=== PATIENT | female | born 1980 | race Caucasian/White ===

== ENCOUNTER 2020-01-19 13:01 | Emergency (ER) | payer MEDICARE, MEDICAID, SELFPAY ==
[2020-01-19 13:10] VITALS: BP 129/71; PULSE 69; RESP 21; TEMP 36.9; O2SAT 98; BMI 23.3
--- NOTE | 2020-01-19 13:45 | XR_ITS ---
PROCEDURE: XR CHEST 2V CLINICAL HISTORY: cough COMPARISON: CR CXR CHEST(2 VIEWS-NOT PORTABLE) from 01/05/2014 CR CXR CHEST(2 VIEWS-NOT PORTABLE) from 03/30/2014 CR XR CHEST 2V from 06/09/2019 FINDINGS: Normal heart size. There is a right-sided aortic knob as a normal variant The lungs are clear without infiltrates, suspicious nodules, or pleural effusions. Calcified granuloma is present in left apex. There is a mild thoracic curvature convex left in the upper thoracic spine. IMPRESSION: No acute findings. Dictated by: Shabbir Bacon MD 01/19/2020 14:12 Shabbir Bacon MD in [place] 01/19/2020 14:12
--- NOTE | 2020-01-19 13:58 | HMH.EDUTC ---
[facility] [place] Clinical Impression: Bronchitis Disposition: Home, Self-Care Condition on Discharge: Good Instructions: Acute Bronchitis, DI for Acute Bronchitis Additional Instructions: Drink plenty of fluids. Take tylenol or ibuprofen for pain or fever. Take the medications as directed. Follow up with your regular doctor. GO TO THE ER FOR ANY WORSENING SYMPTOMS Prescriptions: methylPREDNISolone [Medrol] 4 mg PO DIRECTED 6 Days #21 tab.[email or web address] Transmission Status: Received by [facility] ([place], [place]) Benzonatate [Tessalon Perle 100mg Cap] 100 mg PO TIDP PRN #30 cap PRN Reason: Cough Transmission Status: Received by [facility] Azithromycin [Z-Ab 250mg Tab*] 250 mg PO UD DOSE PK #6 tab Transmission Status: Received by [facility] Referrals: PCP,No [Primary Care Provider] - Time of Disposition: 14:03 Medical Decision Making - Medical Records Medical records reviewed: No: I reviewed the patient's medical records. - Aaron Inquiry Pt receiving controlled substance: No Vital Signs: 01/19/20 13:10 01/19/20 14:05 Temperature 98.4 F 98.4 F Temperature Source Oral Pulse Rate 69 Pulse Rate [Right Brachial] 69 Respiratory Rate 21 21 Blood Pressure 129/71 Blood Pressure [Left Arm] 129/71 Blood Pressure Mean [Left Arm] 90 Blood Pressure Source [Left Arm] Automatic Cuff Blood Pressure Position [Left Arm] Sitting 02 Sat by Pulse Oximetry 98 Oxygen Delivery Method Room Air - Lab Data Lab results reviewed: Yes: I reviewed the patient's lab results. [facility] [place] HPI - General Stated complaint: cough Time Seen by Provider: 01/19/20 13:10 Mode of Arrival: Ambulatory Source of Information: Patient Limitations: No Limitations Description of Symptoms (Recalled from Triage Doc. by RN): PATIENT C/O NON-PRODUCTIVE COUGH X 2 DAYS HEENT Symptoms (Recalled from RN notes): No Resp Symptoms (Recalled from RN notes): Yes Skin Symptoms (Recalled from RN notes): No MS Symptoms (Recalled from RN notes): No Functional Status (Recalled from RN notes): WNL - History of Present Illness Provider Complaint: She c/o sore throat, sinus congestion, and feeling bad for the past 3 days. - Related Data Home Medications Medication Instructions Recorded Confirmed Aspirin 81 mg PO DAILY 05/12/18 01/19/20 Sildenafil Citrate [Sildenafil] 20 mg PO TID 05/12/18 01/19/20 Ambrisentan [Letairis] 10 mg PO DAILY 01/19/20 01/19/20 dilTIAZem HCL [Dilt-Xr] 120 mg PO DAILY 01/19/20 01/19/20 Previous Rx's Medication Instructions Recorded Azithromycin [Z-Ab 250mg Tab*] 250 mg PO UD DOSE PK #6 tab 01/19/20 Benzonatate [Tessalon Perle 100mg 100 mg PO TIDP PRN #30 cap 01/19/20 Cap] methylPREDNISolone [Medrol] 4 mg PO DIRECTED 6 Days #21 01/19/20 tab.ds.pk Allergies Allergy/AdvReac Type Severity Reaction Status Date / Time ciprofloxacin [From Cipro] Allergy Unknown I-RASH Verified 07/17/18 10:19 codeine Allergy Unknown I-HIVES Verified 07/17/18 10:19 hydrocodone Allergy Unknown NA-NAUSEA Verified 07/17/18 10:19 morphine Allergy Unknown I-HIVES Verified 07/17/18 10:19 naproxen Allergy Unknown Verified 07/17/18 10:19 penicillin G Allergy Unknown I-HIVES Verified 07/17/18 10:19 - Worker's Comp Is this a Worker's Comp case?: No [facility] History - Hepatitis A Screen Drug use history?: No High risk sexual behaviors?: No History of sexually transmitted infection?: No Currently employed?: No Childcare worker?: No Do you have indoor plumbing?: Yes Do you have electricity?: Yes Attestation statement:: This patient has been screened for Hepatitis A risk factors. 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
[2020-01-19 14:05] VITALS: BP 129/71; PULSE 69; RESP 21; TEMP 36.9; O2SAT 98
== END 2020-01-19 14:15 | disposition home or self-care (01) ==
PROVIDERS: Emergency Provider Nurse Practitioner Family
DX: J20.9 Acute bronchitis, unspecified (principal); Z20.828 Contact with and (suspected) exposure to other viral communicable diseases; Z88.0 Allergy status to penicillin; Z88.5 Allergy status to narcotic agent
CPT/HCPCS: 71046; 99202; U0003

== ENCOUNTER 2023-10-24 16:21 | Outpatient (CLI) | payer MEDICARE, MEDICAID, SELFPAY ==
--- NOTE | 2023-10-24 16:35 | XR_ITS ---
PROCEDURE INFORMATION: Exam: XR Left Knee Exam date and time: 10/24/2023 4:26 PM Age: 43 years old Clinical indication: Pain; Knee; Left; Additional info: XR L knee pain TECHNIQUE: Imaging protocol: Radiologic exam of the left knee. Views: 3 views. COMPARISON: No relevant prior studies available. FINDINGS: Bones/joints: No acute fracture or dislocation. Joint spaces preserved. No effusion. Soft tissues: Unremarkable. IMPRESSION: No acute osseous abnormality.
== END 2023-10-24 23:59 | disposition home or self-care (01) ==
LOC: RAD 16:25
PROVIDERS: PCP Student in an Organized Health Care Education/Training Program; Visit Provider Student in an Organized Health Care Education/Training Program
DX: M25.562 Pain in left knee (principal)
CPT/HCPCS: 73562

== ENCOUNTER 2024-12-23 10:03 | Emergency (ER) | payer MEDICARE, MEDICAID, SELFPAY ==
--- OUTSIDE RECORDS SUMMARY | 2024-10-29 15:20 | XMS_ITS | Encounter Summary ---
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 10/29/2024 4:39 PM EDT [facility] HCT 52.7(H) 34.0 - 45.0 % LAB HEMATOLOGY METHOD 10/29/2024 4:39 PM EDT [facility] Platelet Count 298 155 - 369 10*3/uL LAB HEMATOLOGY METHOD 10/29/2024 4:39 PM EDT [facility] MCV 96 79 - 98 fL LAB HEMATOLOGY METHOD 10/29/2024 4:39 PM EDT [facility] MCH 32.6(H) 26.0 - 32.0 pg LAB HEMATOLOGY METHOD 10/29/2024 4:39 PM EDT [facility] MCHC 34.0 30.7 - 35.5 g/dL LAB HEMATOLOGY METHOD 10/29/2024 4:39 PM EDT [facility] RDW 13.3 11.5 - 14.5 % LAB HEMATOLOGY METHOD 10/29/2024 4:39 PM EDT [facility] MPV 9.3 8.8 - 12.5 fL LAB HEMATOLOGY METHOD 10/29/2024 4:39 PM EDT [facility] nRBC 0.0 <=0.0 per 100 WBCs LAB HEMATOLOGY METHOD 10/29/2024 4:39 PM EDT [facility] Differential Type Automated LAB HEMATOLOGY METHOD 10/29/2024 4:39 PM EDT [facility] Neutrophils % 58 % LAB HEMATOLOGY METHOD 10/29/2024 4:39 PM EDT [facility] Lymphocytes % 29 % LAB HEMATOLOGY METHOD 10/29/2024 4:39 PM EDT [facility] Monocytes % 7 % LAB HEMATOLOGY METHOD 10/29/2024 4:39 PM EDT [facility] Eosinophils % 5 % LAB HEMATOLOGY METHOD 10/29/2024 4:39 PM EDT [facility] Basophils % 1 % LAB HEMATOLOGY METHOD 10/29/2024 4:39 PM EDT [facility] Immature Granulocytes % 0 % LAB HEMATOLOGY METHOD 10/29/2024 4:39 PM EDT [facility] Neutrophils Absolute 3.48 1.60 - 6.10 10*3/uL LAB HEMATOLOGY METHOD 10/29/2024 4:39 PM EDT [facility] Lymphocytes Absolute 1.69 1.20 - 3.90 10*3/uL LAB HEMATOLOGY METHOD 10/29/2024 4:39 PM EDT [facility] Monocytes Absolute 0.40 0.30 - 0.90 10*3/uL LAB HEMATOLOGY METHOD 10/29/2024 4:39 PM EDT [facility] Eosinophils Absolute 0.27 0.00 - 0.50 10*3/uL LAB HEMATOLOGY METHOD 10/29/2024 4:39 PM EDT [facility] Basophils Absolute 0.07 0.00 - 0.10 10*3/uL LAB HEMATOLOGY METHOD 10/29/2024 4:39 PM EDT [facility] Immature Granulocytes Absolute 0.02 0.00 - 0.06 10*3/uL LAB HEMATOLOGY METHOD 10/29/2024 4:39 PM EDT [facility] Blood Venous blood specimen / Unknown Venipuncture / Unknown 10/29/2024 4:09 PM EDT 10/29/2024 4:24 PM EDT Narrative [facility] - 10/29/2024 4:39 PM EDT Therapeutic decision making should be based on absolute values, rather than percentages. us Radha Esparza MD LAB BLOOD ORDERABLES Final Result [facility] [address] [place] [address] * ECG Adult (Now - Performed in your clinic) (10/29/2024 3:10 PM EDT) EKG DIAGNOSIS CLASS Abnormal MUSE ECG Ventricular Rate 95 BPM MUSE ECG Atrial Rate 95 BPM MUSE ECG AZ Interval 160 ms MUSE ECG QRSD Interval 90 ms MUSE ECG QT Interval 340 ms MUSE ECG QTC Interval 427 ms MUSE ECG P [place] 48 degrees MUSE ECG R [place] 86 degrees MUSE ECG T Wave [place] 42 degrees MUSE ECG Diagnosis Sinus rhythm with premature atrial complexes MUSE ECG Diagnosis Biatrial enlargement MUSE ECG Diagnosis Right ventricular hypertrophy with repolarization abnormality MUSE ECG Diagnosis Nonspecific T wave abnormality MUSE ECG Diagnosis Abnormal ECG MUSE ECG Diagnosis MUSE ECG Diagnosis Confirmed by Yoshi Ferreira ([id number]) on 10/30/2024 9:03:56 AM MUSE ECG 10/29/2024 3:10 PM EDT 10/30/2024 9:03 AM EDT us Radha Esparza MD ECG ORDERABLES Final Resu lt MUSE ECG documented in this encounter Visit Diagnoses Diagnosis 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 Pulmonary hypertension (CMS/HCC) 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) documented in this encounter Additional Health Concerns Assessment Noted Time PHQ-9 Depression Total Score: 0 10/30/19 25 3:08 PM EDT A fall risk assessment has been complete d for the patient 10/29/2024 3:08 PM EDT A Body Mass Index follow-up plan has been documented for the patient 10/29/2024 4:25 PM EDT documented as of this encounter Care Teams Cupola Operator Relationship Specialty Start Date End Date Olena Medrano MD [address] [place] [address] PCP - General Family Medicine 02/06/24 Birgit Myrick APRN [address] [place] [id number] Nurse Practitioner Internal Medicine 11/20/21 Ratna Webber, RN [facility] Registered Nurse Cardiology 11/20/21 Conchis Ornelas, RN [facility] Registered Nurse 01/08/22 Rito Medina MD [address] [place] [phone] Consulting Physician Cardiology 06/27/22 Conchis Hobbs 12/12/23 Chelsi Avalos, [employer] [employer] Licensed Practical Nurse 06/12/24 12/09/24 documented as of this encounter
[2024-12-23 10:14] VITALS: BP 132/61; PULSE 83; RESP 16; TEMP 36.6; O2SAT 86; BMI 22.1
--- NOTE | 2024-12-23 10:19 | ED_ITS ---
<Statement entered by Brad Roberts MD - 12/23/24 19:09> I was consulted by the LUKE, and we discussed the complexity of the problems being addressed. I approve the treatment and management plan for this patient's care in the emergency department, thus performing a substantive portion of the medical decision making. Brad Roberts MD Discharge Plan Disposition Patient Disposition: Home, Self-Care Condition: Good Prescriptions Prescriptions: New ondansetron 4 mg tablet,disintegrating 4 mg PO Q6H PRN (Reason: nausea and vomiting) Qty: 30 0RF No Action ondansetron 4 mg tablet,disintegrating 4 mg PO Q8H PRN (Reason: nausea and vomiting) Qty: 10 0RF Qvar RediHaler 80 mcg/actuation HFA aerosol breath activated 1 inh inhalation BID furosemide 40 mg tablet 40 mg PO DAILY Patient Comments: TAKE 1 TABLET BY MOUTH ONCE DAILY IN THE MORNING spironolactone 25 mg tablet 25 mg PO DAILY Patient Comments: TAKE 2 TABLETS BY MOUTH ONCE DAILY furosemide 20 mg tablet 20 mg PO HS Patient Comments: TAKE 1 TABLET BY MOUTH ONCE DAILY IN THE EVENING aspirin 81 MG tablet,chewable 81 mg PO DAILY sildenafil (pulm.hypertension) 20 MG tablet 20 mg PO TID diltiazem HCl 120 MG capsule,ext.rel 24h degradable 120 mg PO DAILY ambrisentan 10 MG tablet 10 mg PO DAILY Referrals Follow up/Referrals: Olena Medrano MD [Primary Care Provider, Family Practice] - See instructions Claudio Keane II, MD [Staff Physician, Gastroenterology] - See instructions Activity Restrictions/Add. Instructions Additional Instructions/Restrictions: Please return to the emergency department with any worsening signs or symptoms. Please continue to progress your diet as tolerated, take antinausea medicine as needed for symptomatic relief. Follow-up with GI doctor in the upcoming days/weeks. Clinical Impressions Clinical Impression: Abdominal pain, Nausea & vomiting Instructions Patient Instructions: DI for Abdominal Pain-Adult, DI for Nausea -- Adult Print Language Print Language: Kazakh Discharge ED Provider: Brad Roberts General Adult HPI General Chief complaint: Nausea/Vomiting/Diarrhea Stated complaint: abd pain/vomiting Time Seen by Provider: 12/23/24 10:09 Mode of Arrival: Ambulatory Source of Information: Patient Limitations: No Limitations Description of Symptoms (Recalled from ER Triage Doc. by RN): Patient states that she has had vomiting after she eats for 2 weeks. Was seen at [facility] a week ago and given Zofran, which she states helped, but she is out. Was told to follow up with PCP, but she has not seen them. Patient denies any diarrhea. History of Present Illness HPI narrative: 44-year-old female presents the emergency department for poor p.o. intake abdominal pain nausea and vomiting and diarrhea that is persistent for the last 2 weeks, however patient does state that she at times able to keep things down , but the next day they come right back up , patient denies any fever chills chest pain shortness of breath, endorses waxing waning abdominal pain, that is midepigastric in nature, nausea vomiting this morning after she attempted to have intake with coffee and water , states the diarrhea is improved, denies any hematuria melena hematochezia or hematemesis, denies any urinary type symptomatology, patient is a non-smoker, denies any alcohol or drug use, initial triage vitals are grossly unremarkable. Patient was seen in the urgent care treatment facility 2 weeks ago given Zofran which did improve her symptomatology, advised to come to the emergency department if the symptoms do not improve . This prompted her emergency department visit today. Patient is somewhat of a poor historian, but has other past medical history consistent with Eisenmenger syndrome due to congenital VSD, pulmonary hypertension, hypertension, BENITO. Please note that above description of symptoms, in this electronic medical record under categorization of recalled from ER triage doctor by RN are reflective of an initial nursing assessment, however, is not reflective of my full history and physical exam that was personally taken and clarified. Consequentially, this preceding description of symptoms, which may include the patient's categorized chief complaint in the EMR, do not reflect my personal clinical impression, and the ultimate description of history of present illness and patient stated complaints should be deferred to this section of the note. Unless stated otherwise or congruent with this section of the note, additional signs, symptoms, or incongruence should be interpreted as inaccurate with my clinical impression. Onset (ago): week(s) Related Data Home Medications ?Medication ?Instructions ?Recorded ?Confirmed aspirin 81 mg chewable tablet 81 mg PO DAILY heart 12/16/24 sildenafil (pulm.hypertension) 20 20 mg PO TID heart 0 05/12/18 12/16/24 mg tablet ambrisentan 10 mg tablet 10 mg PO DAILY Heart disease 01/19/20 12/16/24 diltiazem HCl 120 mg 120 mg PO DAILY Heart diseas e 01/19/20 12/16/24 capsule,extended release 24 hr, controlled beclomethasone dipropionate 80 1 inh inhalation BID 12/16/24 mcg/actuation HFA breath activated aerosol (Qvar RediHaler) furosemide 20 mg tablet 20 mg PO HS 10/24/23 5 furosemide 40 mg tablet 40 mg PO DAILY 10/24/2307/07 spironolactone 25 mg tablet 25 mg PO DAILY 10/24/23 Previous Rx's ?Medication ?Instructions ?Recorded ondansetron 4 mg disintegrating 4 mg PO Q8H PRN nausea and 12/16/24 tablet vomiting #10 tabs ondansetron 4 mg disintegrating 4 mg PO Q6H PRN nausea and 12/23/24 tablet vomiting #30 tabs Allergies Allergy/AdvReac Type Severity Reaction Status Date / Time ciprofloxacin (From Cipro) Allergy Unknown I-RASH Verified 12/16/24 12:34 codeine Allergy Unknown I-HIVES Verified 12/16/24 12:34 hydrocodone Allergy Unknown NA-NAUSEA Verified 12/16/24 12:34 morphine Allergy Unknown I-HIVES Verified 12/16/24 12:34 naproxen Allergy Unknown Hives Verified 12/23/24 10:19 penicillin G Allergy Unknown I-HIVES Verified 12/16/24 12:34 PFSH PFS Disclaimer: The information contained in this section may have been updated after the patient was seen, as this information can be updated by other users. Medical History (Updated 12/23/24 @ 12:18 by FATOU Stevenson) Nausea Asthma Pneumonia Boil, axilla Otitis media Congenital heart defect Ganglion cyst Acute anxiety Hyperventilation SVT (supraventricular tachycardia) Pseudoseizure Surgical History History of surgical removal of ganglion cyst History of tubal ligation Family History Other No significant family history Social History Smoking Status: Never smoker alcohol intake: never current occupational status: other Travel in the last 8 weeks?: None housing: house Have you lived/traveled outside [place] in past 30 days?: No Contact w/someone who lives/traveled outside US past 30 days?: No Exposure to someone with infectious disease in past 14 days?: No Do you have a fever (greater than 100.4 F or 38 C)?: No Have you tested positive for COVID-19?: No Exposed to someone with COVID-19 in past 14 days?: No Do you have a sore throat?: No Do you have a cough?: No Do you have any weakness?: No Do you have any diarrhea?: No Are you experiencing any unusual bleeding?: No Do you have any muscle aches/pain?: No Do you have any abdominal pain?: No Are you experiencing loss of taste or smell?: No Other Medical History Have you received the Flu Vaccine for this season: Yes Have you received the Pneumonia Vaccine: No ROS Obtained: Yes All systems reviewed & no additional complaints except as documented Physical Exam General General appearance: alert and in no apparent distress Head Head exam: atraumatic and normocephalic Eye Eye exam: Present PERRL and EOMI ENT ENT exam: Present mucous membranes moist Neck Neck exam: Present normal inspection Chest Chest inspection: Present normal inspection and symmetric chest wall rise Respiratory Respiratory exam: Present normal lung sounds bilaterally; Absent respiratory distress Cardiovascular Cardiovascular exam: Present regular rate and normal rhythm Abdominal Exam Abdominal exam: Present soft; Absent tenderness, guarding, rebound or rigidity Extremities Exam Extremities exam: Present normal inspection Neurological Exam Neurological exam: Present alert and oriented X3 Psychiatric Psychiatric exam: Present normal affect Skin Skin exam: Present warm and dry Medical Decision Making Medical Records Medical records reviewed: Yes I reviewed the patient's medical records. Screening: Per USPSTF and CDC recommendations, given the prevalence of disease in our region, it is our hospital?s policy to screen for HIV and viral Hepatitis for all patients aged 18 and over and those with ongoing risk factors. Aaron Inquiry Pt receiving controlled substance: No Aaron was queried for this patient: No Vital Signs: 12/23/24 10:14 12/23/24 11:09 Temperature 97.8 F Temperature Source Oral Pulse Rate 77 Pulse Rate [Left Brachial] 83 Respiratory Rate 16 Blood Pressure 109/56 L Blood Pressure [Left Arm] 132/61 Blood Pressure Mean [Left Arm] 84 Blood Pressure Source [Left Arm] Automatic Cuff Blood Pressure Position Sitting Blood Pressure Position [Left Arm] Sitting 02 Sat by Pulse Oximetry 86 L 95 Oxygen Delivery Method Room Air Room Air Lab Data Lab results reviewed: Yes I reviewed the patient's lab results. Lab Results 12/23/24 10:10: Urine Color Yellow, Urine Appearance Clear, Urine pH 7.0, Ur Specific [place] 1.010, Urine Protein Negative, Urine Glucose (UA) Negative, Urine Ketones Negative, Urine Blood Negative, Urine Nitrate Negative, Urine Bilirubin Negative, Urine Urobilinogen 0.2, Ur Leukocyte Esterase Negative, Urine RBC None, Urine WBC None, Ur Squamous Epith Cells 10-20, Ur Renal Epithelial Cell 3-5, Urine Bacteria Trace, Urine Opiates Screen Negative, Urine Methadone Screen Negative, Ur Barbituates Screen Negative, Ur Phencyclidine Scrn Negative, Ur Amphetamines Screen Negative, U Benzodiazepines Scrn Negative, Urine Cocaine Screen Negative, U Marijuana (THC) Screen Negative 12/23/24 10:30: WBC 7.0, RBC 5.31, Hgb 17.4 H, Hct 51.8 H, MCV 97.6, MCH 32.8 H, MCHC 33.6, RDW 13.3, Plt Count 281, MPV 9.4, Neut % (Auto) 61.0, Lymph % (Auto) 29.2, Wolfe % (Auto) 5.8, Eos % (Auto) 2.6, Baso % (Auto) 1.1, Neut # (Auto) 4.3, Lymph # (Auto) 2.1, Wolfe # (Auto) 0.4, Eos # (Auto) 0.2, Baso # (Auto) 0.1, Sodium 137, Potassium 4.0, Chloride 105, Carbon Dioxide 25, Anion Gap 11.0, BUN 8, Creatinine 0.70, Estimated Creat Clear 79, Estimated GFR 92, Est GFR ( Amer) 111, Glucose 99, Lactate 1.5, Calcium 10.0, Magnesium 1.7, Total Bilirubin 1.0, AST 24, ALT 17, Alkaline Phosphatase 50, Total Protein 6.9, Albumin 4.4, Globulin 2.5, Albumin/Globulin Ratio 1.8, Lipase 42, Plasma/Serum Alcohol < 10 12/23/24 10:30 12/23/24 10:30 Orders (Tests/Meds): ED MEDICATIONS Discontinued Medications Generic Name Dose Route Start Last Admin Trade Name Chiara PRN Reason Stop Dose Admin Sodium Chloride 1,000 mls @ 999 mls/hr 12/23/24 10:26 12/23/24 10:44 Sod Chlor 0.9% 1000ml Bag IV 12/23/24 11:26 999 mls/hr .Q1H1M ONE Administration Iopamidol 75 ml 12/23/24 10:59 12/23/24 11:00 Iopamidol-370 (76%);100ml Bottle IV 12/23/24 11:00 75 ml ONCE ONE Administration Ondansetron HCl 4 mg 12/23/24 10:27 12/23/24 10:45 Ondansetron 4mg/2ml Vial IV 12/23/24 10:28 4 mg ONCE ONE Administration Sodium Chloride 10 ml 12/23/24 10:59 12/23/24 11:00 Sodium Chloride 0.9% 10ml Syr (Rad Only) IV 12/23/24 11:00 10 ml ONCE ONE Administration ORDERS Category Date Time Status CT abdomen pelvis w con Stat Cat Scan 12/23/24 10:27 Completed Complete Blood Count Auto Diff Stat Lab 12/23/24 10:30 Completed Comprehensive Metabolic Panel Stat Lab 12/23/24 10:30 Completed Drug Screen,Urine Stat Lab 12/23/24 10:10 Completed Ethanol [Ethyl Alcohol] Stat Lab 12/23/24 10:30 Completed Lactic Acid Stat Lab 12/23/24 10:30 Completed Lipase Stat Lab 12/23/24 10:30 Completed Magnesium Stat Lab 12/23/24 10:30 Completed Urinalysis and Microscopic Stat Lab 12/23/24 10:10 Completed Medical Decision Narrative: 44-year-old female presents emergency department with 2 weeks of poor p.o. intake abdominal pain nausea vomiting, that is wax and wane, differential diagnose include but not limited to, colitis, ileitis, gastroenteritis, gastroparesis, diverticulitis, electrolyte disturbance, acute UTI, acute nephritis, nephrolithiasis, ureterolithiasis, gastritis, GERD, cannabinoid hyperemesis syndrome. I discussed this patient's case with attending physician Will obtain basic laboratory studies, lipase level, lactic level, UDS, urinalysis, CT ab and pelvis with contrast, will give 1 L IV NS, will give 4 mg IV Zofran for nausea, will obtain magnesium level, ethyl alcohol level. CBC unremarkable CMP grossly unremarkable, lipase normal, lactic acid level within normal limits, ethyl alcohol within normal limit UA is unremarkable UDS is negative I reviewed the patient's CT abdomen pelvis with contrast along with corresponding radiological report, wall thickening of the ascending and transverse portions of the colon worrisome for colitis infectious versus inflammatory, there are nonspecific lower abdominal fluid filled loops of small bowel, and enteritis is not totally excluded, right lower lobe airspace disease likely atelectasis although pneumonia not excluded, the heart is enlarged etiology unclear. I discussed the results with the patient at the bedside, patient then tells me that I have been able to keep water down is just apple juice that comes back up . Patient obviously able to tolerate p.o. intake, as this has been going on for 2 weeks waxing and waning, patient needs GI follow-up for findings on CT scan, abdominal exam is very benign, patient is hemodynamically stable, resting comfortably in the emergency department. Finished IV fluids, patient was given strict ED return precautions will prescribe Zofran 4 mg p.o. sublingual for nausea and vomiting which patient states that she has received relief with in the past. Patient voiced understanding and agreement with the current treatment plan/discharge plan. Critical Care Critical Care Time Critical Care Time: No
--- NOTE | 2024-12-23 10:20 | PC.NURSE ---
UA sent to lab
--- OUTSIDE RECORDS SUMMARY | 2024-12-23 10:21 | XMS_ITS | Clinical Summary ---
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 [address] [place] [address] Consulting Physician Cardiology 06/27/22 Conchis Hobbs 12/12/23
--- OUTSIDE RECORDS SUMMARY | 2024-12-23 10:21 | XMS_ITS | Encounter Summary ---
Author Organization [facility] Address [address] [place] [address] Care Team Providers Care Machinist Class B Name Role Phone Olena Medrano MD Primary Care Provider [phone] Olena Medrano MD Unavailable [phone] Birgit Myrick PRINTING EQUIPMENT MECHANIC APPRENTICE Unavailable [phone] Ratna Webber RN Unavailable Unavailable Conchis Ornelas RN Unavailable Unavailable Rito Medina MD Unavailable [phone] Conchis Hobbs Unavailable Unavailable Olena Medrano MD Primary Care Provider [phone] Serina Duval TRAVEL NURSE Unavailable Unavailable Chelsi Avalos LPN Unavailable Unavailjasson e Encounter Details Date Type Department Care Team (Late st Contact Info) Description 01/20/2024 Lab Requisition [facility] [address] [place] [address] Dontrell Seth MD [address] [facility] [address] [place] [phone] Encounter for general adult medical examination without abnormal findings Social History Tobacco Use Types Packs/Day Years Used Date Smoking Tobacco: Never Assessed Humiliation, Afraid, Rape, and Kick questionnair e [...] Date Recorded Patient Health Questionnaire-2 Score 0 09/19/2023 Hunger Vital Sign Answer Date Recorded Within the past 12 months, y ou worried that your food would run out before you got the money to buy more. Never true 01/03/20 24 Within the past 12 months, t he food you bought just didn't last and you didn't have money to get more. Never true 01/03/2024 PRAPARE - Transportation Answer Date Re corded In the past 12 months, has l ack of transportation kept you from medical appointments or from getting medications? No 12/15 In the past 12 months, has l ack of transportation kept you from meetings, work, or from getting things needed for daily living? No 01/03/2024 Housing Stability Vital Sign Answer Braxton e [...] place to sleep or slept in a [place] facility (including now)? No 01/03/2024 Housing Stability Vital Sign Answer Braxton e Recorded In the last 12 months, was t here a time when you were not able to pay the mortgage or rent on time? No 01/03/2024 Number of Times Moved in the Last Year Not on fi le 01/03/2024 Homeless in the Last Year Not on file 2023 CAGE ASSESSMENT Answer Date Recorded Cage unable [...] drink first t nathaniel in the morning (EYE-HOT MILL WORKER) to steady your nerves or to get rid of a hangover? 0 06/04/2023 CAGE Questionnaire Score 0 024 Utilities Answer Date Recorded In the past 12 months has th e [facility], gas, oil, or water [employer] threatened to shut off services in your home? No 01/03/2024 PHQ-2A Answer Date Recorded Patient Health Questionnaire-2 Score 0 01/07/2023 Comments Unknown Sex and Gender Information Value Date Recorded Sex Assigned at Not on file Legal Sex Female 8:15 PM EDT Gender Identity Not on file Sexual Orientation Not on file documented as of this encounter Functional Status * Calculated C-SSRS Risk Score (Lifetime/Recent) Answer Date of Assessment Author No Risk Indicated 01/21/2024 8:00 PM EDT Susie Farr RN * Question Answer Date of Assessment Author 1. Wish to be (Past 1 Month) No 024 8:00 PM EDT Jamal Farr RN 2. Non-Specific Active Suici adela Thoughts (Past 1 Month) No 01/21/2024 8:00 PM EDT Ian Farr RN 6. Suicidal Behavior (Lifetime) No 8:00 PM EDT Jamal Farr RN documented as of this encounter Plan of Treatment Upcoming Encounters Date Type Department Care Team (Late st Contact Info) Description 05/06/2025 1:00 PM EST Appointment Cardiac Imaging [address] [place] [address] 05/06/2025 2:40 PM EST Office Visit [facility] [place] [address] [place] [phone] Radha Esparza MD [address] [place] [address] documented as of this encounter Procedures Procedure Name Priority Date/Time Associated Diagnosis Comments MULTI DRUG RESISTANCE TEST Routine 01/20/2024 9:00 AM EDT Encounter for general adult medical examination without abnormal findings documented in this encounter Results * Multi Drug Resistance Test (01/20/2024 9:00 AM EDT) Culture No growth at day 1 01/21/2024 6:02 AM EDT [facility] Swab (Nares and Tova Rectal) 01/20/2024 9:00 AM EDT 01/20/2024 9:12 AM EDT us Dontrell Seth MD LAB MICROBIOLOGY - GEN ERAL ORDERABLES Final Result [facility] [address] [place] [address] documented in this encounter Visit Diagnoses Diagnosis Encounter for general adult medical examination without abnormal findings documented in this encounter Additional Health Concerns Infection Onset Date Last Indicated Resolved Time Streptococcus pneumoniae 12/29/2023 12/29/2023 5:23 AM EDT Assessment Noted Time A fall risk assessment has been complete d for the patient 09/19/2023 3:21 PM EDT A Body Mass Index follow-up plan has been documented for the patient 01/27/2024 12:36 PM EDT documented as of this encounter Care Teams Machinist Class B Relationship Specialty Start Date End Date Olena Medrano MD [address] [place] [address] PCP - General Family Medicine 11/29/23 02/05/24 Olena Medrano MD [address] [place] [address] PCP - General Family Medicine 02/06/24 Olena eMdrano MD [address] [place] [address] Family Medicine 11/29/23 02/05/24 Birgit Myrick APRN [address] [place] [address] Nurse Practitioner Internal Medicine 11/20/21 Ratna Webber RN [facility] Registered Nurse Cardiology 11/20/21 Conchis Ornelas RN [facility] Registered Nurse 01/08/22 Rito Medina MD [address] [place] [address] Consulting Physician Cardiology 06/27/22 Conchis Hobbs 12/12/23 Serina Duval LPN [employer] [place] [address] TCM Nurse 02/18/24 03/19/24 Chelsi Avalos LPN [employer]BASED TRANSFORMATION PRO[employer] Licensed Practical Nurse 06/12/24 12/09/24 documented as of this encounter
--- OUTSIDE RECORDS SUMMARY | 2024-12-23 10:21 | XMS_ITS | Encounter Summary ---
Author Organization [facility] Address [address] [place] [address] Care Team Providers Care Monument Setter Helper Name Role Phone Cathie Yun MD Primary Care Provider [phone] Case Mills MD Primary Care Provider Olena Medrano MD Primary Care Provider [phone] Olena Medrano MD Primary Care Provider [phone] Olena Medrano MD Unavailable [phone] Birgit Myrick SECOND FACING BASTER Unavailable [phone] Ratna Webber RN Unavailable Unavailable Conchis Ornelas RN Unavailable Unavailable Sae Porras MD Unavailable Rito Medina MD Unavailable [phone] Yeny Wolfe FARM EQUIPMENT MECHANIC Unavailable Unavaila Conchis Varner Unavailable Unavailable Olena Medrano MD Primary Care Provider [phone] Serina Duval FARM EQUIPMENT MECHANIC Unavailable Unavailable Chelsi Avalos FARM EQUIPMENT MECHANIC Unavailable Unavailjasson e Encounter Details Date Type Department Care Team (Late st Contact Info) Description 03/07/2021 Outside Procedure External Location [address] [place] [address] Cathie Yun MD [address] [place] [address] Social History Tobacco Use Types Packs/Day Years Used Date Smoking Tobacco: Never Smokeless Tobacco: Never Alcohol Use Standard Drinks/Week Comments No 0 (1 standard drink = 0.6 oz pur e alcohol) PHQ-2 Answer Date Recorded Patient Health Questionnaire-2 Score 0 02/08/2021 Comments Unknown Sex and Gender Information Value Date Recorded Sex Assigned at Not on file Legal Sex Female 8:15 PM EDT Gender Identity Not on file Sexual Orientation Not on file COVID-19 Exposure Response Date Recorded In the last month, have you been in contact with someone who was confirmed or suspected to have Coronavirus / COVID-19? Unable to assess 02/23/2021 2:33 PM EST documented as of this encounter Plan of Treatment Upcoming Encounters Date Type Department Care Team (Late st Contact Info) Description 05/06/2025 1:00 PM EST Appointment Cardiac Imaging [address] [place] [address] 05/06/2025 2:40 PM EST Office Visit [facility] [place] [address] [facility] [place] [address] Cassie Esparza MD [address] [place] [address] documented as of this encounter Procedures Procedure Name Priority Date/Time Associated Diagnosis Comments US PELVIS TRANSVAGINAL 03/07/2021 3:01 PM EST documented in this encounter Results * US Pelvis Transvaginal (03/07/2021 3:01 PM EST) Anatomical Region Laterality Modality Pelvis Ultrasound 03/07/2021 3:01 PM EST Narrative 03/08/2021 8:59 AM EST [facility] [address] [place] [address] Name: CASSIE JOHNS Exam Date: 03/07/2021 : 1980 Age 40 Gender: F Physician: CATHIE YUN Facility: [facility] Facility HSV: Outpatient Exam: US TRANSVAGINAL PELVIC ULTRASOUND HISTORY: Left lower quadrant pain. PROCEDURE: Transvaginal imaging of the pelvis was performed. FINDINGS: Uterus is normal in size. Uterus measures 7.6 x 4.2 x 3.4 cm. There is mild parenchymal heterogeneity. Nabothian cysts are visualized in the cervix. Endometrial thickness is within normal limits. Patient is status post right oophorectomy. Left ovary is normal in size, measuring 2.3 x 1.8 x 1.6 cm in size. There is a hypoechoic structure within the left ovary. This is reflective of a corpus luteal cyst. No significant free fluid is identified in the pelvic cul-de-sac. IMPRESSION: No acute intrapelvic pathology. Status post right oophorectomy. Normal left ovary with corpus luteum cyst within the ovary. No free fluid in the pelvis. The films were reviewed, interpreted, and dictated by Dr. Miguel Mays Transcribed by Carlie Lim PA-C Dictated By: Miguel Hammer Transcribed By: Miguel Mays Transcribed On: 03/08/2021 8:47 AM Electronically signed by: Miguel Hammer 03/08/2021 Thank you for referring JASONCASSIE HATHAWAY to [facility]. Legally authenticated by [facility] 2021-03-08 08:47:29 Procedure Note Provider, [facility] - 03/08/2021 [place] [address] Name: CASSIE JOHNS Exam Date: 03/07/2021 : 1980 Age 40 Gender: F Physician: CATHIE YUN Facility: [facility] Facility HSV: Outpatient Exam: US TRANSVAGINAL PELVIC ULTRASOUND HISTORY: Left lower quadrant pain. PROCEDURE: Transvaginal imaging of the pelvis was performed. FINDINGS: Uterus is normal in size. Uterus measures 7.6 x 4.2 x 3.4 cm.There is mild parenchymal heterogeneity. Nabothian cysts are visualized in the cervix. Endometrial thickness is within normal limits. Patient is statuspost right oophorectomy. Left ovary is normal in size, measuring 2.3 x 1.8 x1.6 cm in size. There is a hypoechoic structure within the left ovary. This is reflective of a corpus luteal cyst. No significant free fluid isidentified in the pelvic cul-de-sac. IMPRESSION: No acute intrapelvic pathology. Status post right oophorectomy. Normal left ovary with corpus luteum cyst within the ovary. No free fluid in the pelvis. The films were reviewed, interpreted, and dictated by Dr. Miguel Lane Transcribed by Carlie Lim PA-C Dictated By: Miguel Hammer Transcribed By: Miguel Mays Transcribed On: 03/08/2021 8:47 AM Electronically signed by: Miguel Hammer 03/08/2021 Thank you for referring CASSIE JOHNS to [facility]. Legally authenticated by [facility] 2021-03-08 08:47:29 us Cathie Yun MD IMG US PROCEDURES Final Resu lt documented in this encounter Visit Diagnoses Not on filedocumented in this encounter Additional Health Concerns Infection Onset Date Last Indicated Resolved Time COVID-19 Rule-Out 04/05/2023 04/05/2023 04/05/2023 3:55 PM EST COVID 19 (Confirmed) 04/05/2023 04/05/2023 024 5:24 AM EST COVID-19 Rule-Out 06/03/2023 06/03/2023 06/03/2023 3:55 PM EST COVID-19 Rule-Out 12/28/2023 12/28/2023 12/28/2023 11:40 PM EDT Streptococcus pneumoniae 12/29/2023 12/29/2023 5:23 AM EDT COVID-19 Rule-Out 01/13/2024 01/13/2024 01/13/2024 1:52 PM EDT Respiratory Rule-Out 01/13/2024 01/13/2024 024 4:52 PM EDT C. difficile Rule-Out 01/16/2024 01/16/20242023 12:48 AM EDT Assessment Noted Time A fall risk assessment has been complete d for the patient 02/08/2021 2:16 PM EDT documented as of this encounter Care Teams Monument Setter Helper Relationship Specialty Start Date End Date Cathie Yun MD [address] [place] [address] PCP - General Internal Medicine 01/25/21 10/01/21 Case Mills MD [address] [place] [address] PCP - General Family Medicine 10/02/21 11/21/21 Olena Medrano MD [address] [place] [address] PCP - General Family Medicine 11/22/21 11/28/23 Olena Medrano MD [address] [place] [address] PCP - General Family Medicine 11/29/23 02/05/24 Olena Medrano MD [address] [place] [address] PCP - General Family Medicine 02/06/24 Olena Medrano MD [address] [place] [address] Family Medicine 11/29/23 02/05/24 Birgit Myrick APRN [address] [place] [address] Nurse Practitioner Internal Medicine 11/20/21 Ratna Webber, RN [facility] Registered Nurse Cardiology 11/20/21 Conchis Ornelas, [facility] Registered Nurse 01/08/22 Sae Porras MD [address] [place] [address] Consulting Physician Pediatric Cardiology 02/19/22 12/11/23 Rito Medina MD [address] [place] [address] Consulting Physician Cardiology 06/27/22 Yeny Wolfe LPN VALUE-BASED TRANSFORMATION PROGRAM TCM Nurse 06/07/23 06/07/23 Conchis Hobbs 12/12/23 Serina Duval LPN VALUE[employer]ED [place] [address] TCM Nurse 02/18/24 03/19/24 Chelsi Avalos LPN VALUE-BASED TRANSFORMATION PROGRAM Licensed Practical Nurse 06/12/24 12/09/24 documented as of this encounter
--- OUTSIDE RECORDS SUMMARY | 2024-12-23 10:21 | XMS_ITS | Encounter Summary ---
Author Organization [facility] Address [address] [place] [address] Care Team Providers Care Compensation Consulting Manager Name Role Phone Olena Medrano MD Primary Care Provider [phone] Olena Medrano MD Unavailable [phone] Birgit Myrick APRON WORKER Unavailable [phone] Ratna Webber RN Unavailable Unavailable Conchis Ornelas RN Unavailable Unavailable Rito Medina MD Unavailable [phone] Conchis Hobbs Unavailable Unavailable Olena Medrano MD Primary Care Provider [phone] Serina Duval INTERMEDIATE TEACHER Unavailable Unavailable Chelsi Avalos LPN Unavailable Unavailjasson e Encounter Details Date Type Department Care Team (Late st Contact Info) Description 01/28/2024 Lab Requisition [facility] [address] [place] [address] Shahid Martinez MD [address] [facility] [address] [place] [address] Encounter for general adult medical examination without [...] place to sleep or slept in a penitentiary (including now)? No 01/03/2024 Housing Stability Vital [...] drink first t nathaniel in the morning (EYE-PRESIDENT AND CMO) to steady your nerves or to get rid of a hangover? 0 06/04/2023 CAGE Questionnaire Score 0 024 Utilities Answer Date Recorded In the past 12 months has th e electric, gas, oil, or water [employer] threatened to shut off services in your home? No 01/03/2024 PHQ-2A Answer Date Recorded Patient Health Questionnaire-2 Score 0 01/07/2023 Comments Unknown Sex and Gender Information Value Date Recorded Sex Assigned at Not on file Legal Sex Female 8:15 PM EDT Gender Identity Not on file Sexual Orientation Not on file documented as of this encounter Plan of Treatment Upcoming Encounters Date Type Department Care Team (Late st Contact Info) Description 05/06/2025 1:00 PM EST Appointment Cardiac Imaging [address] [place] [address] 05/06/2025 2:40 PM EST Office Visit [facility] [place] [address] [facility] [place] [address] Radha Esparza MD [address] [place] [address] documented as of this encounter Procedures Procedure Name Priority Date/Time Associated Diagnosis Comments MARISOL AURIS SURVEILLANCE BY PCR Routine 01/27/2024 5:14 PM EDT Encounter for general adult medical examination without abnormal findings documented in this encounter Results * Marisol auris Surveillance by PCR (01/27/2024 5:14 PM EDT) Marisol auris PCR Result Not Detected Not Detected 01/29/2024 9:59 AM EDT [facility] Swab (Axilla and Groin) 01/27/2024 5:14 PM EDT 01/28/2024 9:11 AM EDT Narrative [facility] - 01/29/2024 9:59 AM EDT This PCR assay was developed and its performance characteristics determined by [facility] as appropriate for clinical purposes. This assay has not been cleared or approved by the FDA, but is performed in a CLIA regulated laboratory that is qualified to perform high-complexity testing. us Shahid Martinez MD LAB MICROBIOLOGY - GENERAL ORDERABLES Final Result [facility] [address] [place] [address] documented in this encounter Visit Diagnoses Diagnosis [...] documented as of this encounter Care Teams Compensation Consulting Manager Relationship Specialty Start Date End Date Olen[place] [address] PCP - General Family Medicine 11/29/23 02/05/24 Olena Medrano MD [address] [place] [address] PCP - General Family Medicine 02/06/24 Olen[place] [address] Family Medicine 11/29/23 02/05/24 Birgit Myrick APRN [address] [place] [phone] Nurse Practitioner Internal Medicine 11/20/21 Ratna Webber, RN [facility] Registered Nurse Cardiology 11/20/21 Conchis Ornelas, RN [facility] Registered Nurse 01/08/22 Rito Medina MD [address] [place] [address] Consulting Physician Cardiology 06/27/22 Conchis Hobbs 12/12/23 Serina Duval LPN [employer] [place] [address] TCM Nurse 02/18/24 03/19/24 Chelsi Avalos LPN VALUE-BASED TRANSFORMATION PROGRAM Licensed Practical Nurse 06/12/24 12/09/24 documented as of this encounter
--- OUTSIDE RECORDS SUMMARY | 2024-12-23 10:21 | XMS_ITS | Encounter Summary ---
Author Organization [facility] Address [address] [place] [address] Care Team Providers Care Anesthesiologist Attending Name Role Phone Olena Medrano MD Primary Care Provider [phone] Olena Medrano MD Unavailable [phone] Birgit Myrick CLIENT CONSULTANT Unavailable [phone] Ratna Webber RN Unavailable Unavailable Conchis Ornelas RN Unavailable Unavailable Sae Porras MD Unavailable Rito Medina MD Unavailable [phone] Conchis Hobbs Unavailable Unavailable Olena Medrano MD Primary Care Provider [phone] Serina Duval MANAGER OF CUSTOMER BILLING Unavailable Unavailable Chelsi Avalos LPN Unavailable Unavailabl e Encounter Details Date Type Department Care Team (Late st Contact Info) Description 12/06/2023 Outside Procedure External Location [address] [place] [address] Garrick Armendariz, CLIENT CONSULTANT [address] [place] [address] Social History Tobacco Use Types Packs/Day Years Used Date Smoking Tobacco: Never Passive Smoke Exposure: Never Smokeless Tobacco: Never Alcohol Use Standard Drinks/Week Comments No 0 (1 standard drink = 0.6 oz pur e alcohol) Humiliation, Afraid, Rape, and Kick questionnair e Answer Date Recorded Within the last year, have y ou been afraid of your partner or ex-partner? No 11/25/2023 Within the last year, have y ou been humiliated or emotionally abused in other ways by your partner or ex-partner? No Within the last year, have y ou been kicked, hit, slapped, or otherwise physically hurt by your partner or ex-partner? No 11/25/2023 Within the last year, have y ou been raped or forced to have any kind of sexual activity by your partner or ex-partner? No 11/25/2023 PHQ-2 Answer Date Recorded Patient Health Questionnaire-2 Score 0 09/19/2023 Hunger Vital Sign Answer Date Recorded Within the past 12 months, y ou worried that your food would run out before you got the money to buy more. Patient declined Within the past 12 months, t he food you bought just didn't last and you didn't have money to get more. Patient declined 03/2024 PRAPARE - Transportation Answer Date Re corded In the past 12 months, has l ack of transportation kept you from medical appointments or from getting medications? No 11/13 In the past 12 months, has l ack of transportation kept you from meetings, work, or from getting things needed for daily living? No 11/25/2023 Housing Stability Vital Sign Answer Braxton e Recorded In the last 12 months, was t here a time when you were not able to pay the mortgage or rent on time? No 11/25/2023 In the last 12 months, how many places have you lived? 1 11/25/2023 In the last 12 months, was t here a time when you did not have a steady place to sleep or slept in a [place] [facility] [place] (including now)? No 11/25/2023 CAGE ASSESSMENT Answer Date Recorded Cage unable [...] drink first t nathaniel in the morning (EYE-SPOT WASHER) to steady your nerves or to get rid of a hangover? 0 06/04/2023 CAGE Questionnaire Score 0 024 Utilities Answer Date Recorded In the past 12 months has th e electric, gas, oil, or water company threatened to shut off services in your home? No 11/25/2023 PHQ-2A Answer Date Recorded Patient Health Questionnaire-2 [...] PM EST Appointment Cardiac Imaging [address] [place] [address] 05/06/2025 2:40 PM EST Office Visit [facility] [place] [address] [place] [address] Cassie Esparza MD [address] [place] [address] documented as of this encounter Procedures Procedure Name Priority Date/Time Associated Diagnosis Comments MR KNEE LEFT WO IV CONTRAST 12/06/2023 3:23 PM EDT documented in this encounter Results * MR Knee Left wo IV Contrast (12/06/2023 3:23 PM EDT) Anatomical Region Laterality Modality Knee Left Magnetic Resonan ce 12/06/2023 3:23 PM EDT Narrative 12/07/2023 5:40 [place] [address] Name: CASSIE JOHNS Exam Date: 12/06/2023 : 1980 Age 43 years Gender: F Physician: GARRICK ARMENDARIZ Facility: [facility] Facility HSV: Outpatient Exam: MRI KNEE W/O CONT LT MRI LEFT KNEE Technique: MRI examination of the left knee obtained using multiplanar, multi-sequential images CLINICAL INDICATION: Female, 43 years old. medial knee pain COMPARISON: None. Findings: LIGAMENTS AND TENDONS: Anterior and posterior cruciate ligaments are intact. Medial and lateral collateral ligaments are normal appearing. The distal quadriceps and patellar tendons are unremarkable. MENISCI: Medial and lateral menisci are intact. PATELLA: Patella articulates normally. The medial lateral retinaculum are intact. OSTEOCARTILAGINOUS STRUCTURES: There is normal marrow signal. There is no visible osteochondral defect. No focal cartilaginous defect is seen. PARA-OSSEOUS STRUCTURES: There is no sizable suprapatellar joint effusion. Impression: Unremarkable MRI of the knee Electronically signed by:Anabella Spaulding MD12/07/2023 05:35 PM EDT RP Dictated By: Anabella Spaulding Transcribed By: Transcribed On: 12/06/2023 5:03 PM Electronically signed by: Anabella Spaulding 12/06/2023 Thank you for referring CASSIE JOHNS to [facility]. Legally authenticated by FELICE GEE 2023-12-06 17:03:00 Procedure Note Provider, [facility] [place] - 12/07/2023 [place] [address] Name: CASSIE JOHNS Exam Date: 12/06/2023 : 1980 Age 43 years Gender: F Physician: GARRICK ARMENDARIZ Facility: [facility] Facility HSV: Outpatient Exam: MRI KNEE W/O CONT LT MRI LEFT KNEE Technique: MRI examination of the left knee obtained using multiplanar, multi-sequential images CLINICAL INDICATION: Female, 43 years old. medial knee pain COMPARISON: None. Findings: LIGAMENTS AND TENDONS: Anterior and posterior cruciate ligaments areintact. Medial and lateral collateral ligaments are normal appearing. The distal quadriceps and patellar tendons are unremarkable. MENISCI: Medial and lateral menisci are intact. PATELLA: Patella articulates normally. The medial lateral retinaculumare intact. OSTEOCARTILAGINOUS STRUCTURES: There is normal marrow signal. There isno visible osteochondral defect. No focal cartilaginous defect is seen. PARA-OSSEOUS STRUCTURES: There is no sizable suprapatellar jointeffusion. Impression: Unremarkable MRI of the knee Electronically signed by:Anabella Spaulding MD12/07/2023 05:35 PM EDT RP Dictated By: Anabella Spaulding Transcribed By: Transcribed On: 12/06/2023 5:03 PM Electronically signed by: Anabella Spaulding 12/06/2023 Thank you for referring JASONRIVAS CASSIE to [facility]. Legally authenticated by FELICE GEE 2023-12-06 17:03:00 Garrick Armendariz APRN IMG MRI PROCEDURES Final Result documented in this encounter Visit Diagnoses Not on filedocumented in this encounter Additional Health Concerns Infection Onset Date Last Indicated Resolved Time COVID-19 Rule-Out 12/28/2023 12/28/2023 12/28/2023 11:40 PM [...] plan has been documented for the patient 11/26/2023 4:44 PM EDT documented as of this encounter Care Teams Anesthesiologist Attending Relationship Specialty Start Date End Date Olena Medrano MD [address] [place] [address] PCP - General Family Medicine 11/29/23 02/05/24 Olena Medrano MD [address] [place] [address] PCP - General Family Medicine 02/06/24 Olena Medrano MD [address] [place] [address] Family Medicine 11/29/23 02/05/24 Birgit Myrick, CLIENT CONSULTANT [address] [place] [address] Nurse Practitioner Internal Medicine 11/20/21 Ratna Webber, RN [facility] Registered Nurse Cardiology 11/20/21 Conchis Ornelas RN [facility] Registered Nurse 01/08/22 Sae Porras MD [address] [place] [address] Consulting Physician Pediatric Cardiology 02/19/22 12/11/23 Rito Medina MD [address] [place] [address] Consulting Physician Cardiology 06/27/22 Conchis Hobbs 12/12/23 Serina Duval LPN [employer]UE[employer]ED [place] [address] TCM Nurse 02/18/24 03/19/24 Chelsi Avalos LPN VALUE-BASED TRANSFORMATION PROGRAM Licensed Practical Nurse 06/12/24 12/09/24 documented as of this encounter
--- OUTSIDE RECORDS SUMMARY | 2024-12-23 10:21 | XMS_ITS ---
Author Organization [facility] Address [address] [place] [address] Care Team Providers Care Ell Tutor Name Role Phone Birgit Myrick MANAGER BATTERY Unavailable [phone] Ratna Webber RN Unavailable Unavailable Conchis Ornelas RN Unavailable Unavailable Rito Medina MD Unavailable [phone] Conchis Hobbs Unavailable Unavailable Olena Medrano MD Primary Care Provider [phone] Annual Wellness Status:Closed (Closed) Start date:06/12/2024 Enrollment reason:Identified using claims or encounter data End date:12/09/2024 Close reason:Patient graduated Continued Care and Services Coordination
--- OUTSIDE RECORDS SUMMARY | 2024-12-23 10:21 | XMS_ITS | Encounter Summary ---
Author Organization [facility] Address [address] [place] [address] Care Team Providers Care Investment Broker Name Role Phone Olena Medrano MD Primary Care Provider [phone] Olena Medrano MD Primary Care Provider [phone] Olena Medrano MD Unavailable [phone] Birgit Myrick UTILIZATION MANAGEMENT NURSE Unavailable [phone] Ratna Webber RN Unavailable Unavailable Conchis Ornelas RN Unavailable Unavailable Sae Porras MD Unavailable Rito Medina MD Unavailable [phone] Yeny Wolfe SHAREPOINT NET DEVELOPER Unavailable Unavaila Conchis Varner Unavailable Unavailable Olena Medrano MD Primary Care Provider [phone] Serina Duval SHAREPOINT NET DEVELOPER Unavailable Unavailable Chelsi Avalos SHAREPOINT NET DEVELOPER Unavailable Unavailabl e Encounter Details Date Type Department Care Team (Late st Contact Info) Description 03/26/2022 Outside Procedure External Location [address] [place] [address] Olena Medrano MD [address] [place] [address] Social History Tobacco Use Types Packs/Day Years Used Date Smoking Tobacco: Never Passive Smoke Exposure: Never Smokeless Tobacco: Never Alcohol Use Standard Drinks/Week Comments No 0 (1 standard drink = 0.6 oz pur e alcohol) PHQ-2 Answer Date Recorded Patient Health Questionnaire-2 Score 0 02/27/2022 Comments Unknown Sex and Gender Information Value Date Recorded Sex Assigned at Not on file Legal Sex Female 8:15 PM EDT Gender Identity Not on file Sexual Orientation Not on file COVID-19 Exposure Response Date Recorded In the last 10 days, have yo u been in contact with someone who was confirmed or suspected to have Coronavirus/COVID-19? No / Unsure 02/27/2022 3:16 PM EST documented as of this encounter Plan of Treatment Upcoming Encounters Date Type Department Care Team (Late st Contact Info) Description 05/06/2025 1:00 PM EST Appointment Cardiac Imaging [address] [place] [address] 05/06/2025 2:40 PM EST Office Visit [facility] [place] [address] [place] [address] Cassie Esparza MD [address] [place] [address] documented as of this encounter Procedures Procedure Name Priority Date/Time Associated Diagnosis Comments MAMMOGRAPHY BREAST SCREENING TOMOSYNTHESIS BILATERAL 03/26/2022 3:29 PM EST documented in this encounter Results * Mammography Breast Screening Tomosynthesis Bilateral (03/26/2022 3:29 PM EST) Anatomical Region Laterality Modality Breast Bilateral Mammography 03/26/2022 3:29 PM EST Narrative 03/27/2022 11:04 [place] [address] Name: CASSIE JOHNS Exam Date: 03/26/2022 : 1980 Age 42 Gender: F Physician: OLENA MALDONADO Facility: [facility] Facility HSV: Outpatient Exam: GERMAINE SCRN MAMMO W/CAD BILAT Bilateral digital screening mammogram with CAD and with breast tomosynthesis Findings: Tissue is heterogeneously dense. This is a baseline exam. There are no dominant or suspicious densities or areas of significant asymmetry. There are no focal clusters of calcifications. There are no areas of focal mammographic concern. Impression: BI-RADS 1, negative Yearly follow-up screening mammography is recommended. This patient will be sent a letter from the mammography department with their mammography results. Dictated By: ADORE FRANCO Transcribed By: Enma Thorne Transcribed On: 03/27/2022 9:22 AM Electronically signed by: ADORE FRANCO 03/27/2022 Thank you for referring CASSIE JOHNS to [facility]. Legally authenticated by JOAN AVITIA 2022-03-27 10:52:01 Procedure Note Provider, [facility] - 03/27/2022 [place] [address] Name: CASSIE JOHNS Exam Date: 03/26/2022 : 1980 Age 42 Gender: F Physician: OLENA MALDONADO Facility: [facility] Facility HSV: Outpatient Exam: GERMAINE SCRN MAMMO W/CAD BILAT Bilateral digital screening mammogram with CAD and with breasttomosynthesis Findings: Tissue is heterogeneously dense. This is a baseline exam.There are no dominant or suspicious densities or areas of significant asymmetry. There are no focal clusters of calcifications. There are noareas of focal mammographic concern. Impression: BI-RADS 1, negative Yearly follow-up screening mammography is recommended. This patient will be sent a letter from the mammography department withtheir mammography results. Dictated By: ADORE FRANCO Transcribed By: Enma Thorne Transcribed On: 03/27/2022 9:22 AM Electronically signed by: ADORE FRANCO 03/27/2022 Thank you for referring CASSIE JOHNS to [facility]. Legally authenticated by JOAN AVITIA 2022-03-27 10:52:01 Olena Medrano MD IMG BI PROCEDURES Final Result documented in this encounter [...] has been complete d for the patient 01/01/2022 2:08 PM EDT documented as of this encounter Care Teams Investment Broker Relationship Specialty Start Date End Date Olena Medrano MD [address] [place] [address] PCP - General Family Medicine 11/22/21 11/28/23 Olena Medrano MD [address] [place] [address] PCP - General Family Medicine 11/29/23 02/05/24 Olena Medrano MD [address] [place] [address] PCP - General Family Medicine 02/06/24 Olena Medrano MD [address] [place] [address] Family Medicine 11/29/23 02/05/24 Birgit Myrick APRN [address] [place] [address] Nurse Practitioner Internal Medicine 11/20/21 Ratna Webber, RN [facility] Registered Nurse Cardiology 11/20/21 Conchis Ornelas, RN [facility] Registered Nurse 01/08/22 Sae Porras MD [address] [place] [address] Consulting Physician Pediatric Cardiology 02/19/22 12/11/23 Rito Medina MD [address] [place] [address] Consulting Physician Cardiology 06/27/22 Yeny Wolfe LPN VALUE-BASED TRANSFORMATION PROGRAM TCM Nurse 06/07/23 06/07/23 Conchis Hobbs 12/12/23 Serina Duval LPN [employer]UE[employer] [place] [address] TCM Nurse 02/18/24 03/19/24 Chelsi Avalos LPN VALUE-BASED TRANSFORMATION PROGRAM Licensed Practical Nurse 06/12/24 12/09/24 documented as of this encounter
--- OUTSIDE RECORDS SUMMARY | 2024-12-23 10:21 | XMS_ITS | Encounter Summary ---
Author Organization [facility] Address [address] [place] [address] Care Team Providers Care Soda Dry House Operator Name Role Phone Olena Medrano MD Primary Care Provider [phone] Olena Medrano MD Unavailable [phone] Birgit Myrick TROLLEY WIRE INSTALLER Unavailable [phone] Ratna Webber RN Unavailable Unavailable Conchis Ornelas RN Unavailable Unavailable Rito Medina MD Unavailable [phone] Conchis Hobbs Unavailable Unavailable Olena Medrano MD Primary Care Provider [phone] Serina Duval PICK UP DRIVER Unavailable Unavailable Chelsi Avalos LPN Unavailable Unavailjasson e Encounter Details Date Type Department Care Team (Late st Contact Info) Description 01/06/2024 Lab Requisition [facility] [address] [place] [address] Dontrell Seth MD [address] [facility] [address] [place] [address] Encounter for general adult medical examination without [...] in a half-way (including now)? No 01/03/2024 Housing Stability Vital [...] drink first t nathaniel in the morning (EYE-SOUND EFFECTS SUPERVISOR) to steady your nerves or to get rid of a hangover? 0 06/04/2023 CAGE Questionnaire Score 0 024 Utilities Answer Date Recorded In the past 12 months has e electric, gas, oil, or water [employer] threatened to shut off services in your [...] PM EST Appointment Cardiac Imaging [address] [place] [address] 05/06/2025 2:40 PM EST Office Visit [facility] [place] [address] [facility] [place] [address] Radha Esparza MD [address] [place] [address] documented as of this encounter Procedures Procedure Name Priority Date/Time Associated Diagnosis Comments MULTI DRUG RESISTANCE TEST Routine 01/06/2024 10:00 AM EDT Encounter for general adult medical examination without abnormal findings documented in this encounter Results * Multi Drug Resistance Test (01/06/2024 10:00 AM EDT) Culture No growth at day 1 01/07/2024 7:24 AM EDT [facility] Swab (Nares and Tova Rectal) 01/06/2024 10:00 AM EDT 01/06/2024 10:27 AM EDT us Dontrell Seth MD LAB MICROBIOLOGY - GEN ERAL ORDERABLES Final Result [facility] [address] [place] [address] documented in this encounter Visit Diagnoses Diagnosis [...] documented as of this encounter Care Teams Soda Dry House Operator Relationship Specialty Start Date End Date [place] [address] PCP - General Family Medicine 11/29/23 02/05/24 Olena Medrano MD [address] [place] [address] PCP - General Family Medicine 02/06/24 [place] [address] Family Medicine 11/29/23 02/05/24 Birgit Myrick APRN [address] [place] [address] Nurse Practitioner Internal Medicine 11/20/21 Ratna Webber, RN [facility] Registered Nurse Cardiology 11/20/21 Conchis Ornelas, RN [facility] Registered Nurse 01/08/22 Rito Medina MD [address] [place] [address] Consulting Physician Cardiology 06/27/22 Conchis Hobbs 12/12/23 Serina Duval LPN VALUE-BASED [place] [address] TCM Nurse 02/18/24 03/19/24 Chelsi Avalos LPN VALUE-BASED TRANSFORMATION PROGRAM Licensed Practical Nurse 06/12/24 12/09/24 documented as of this encounter
--- OUTSIDE RECORDS SUMMARY | 2024-12-23 10:21 | XMS_ITS | Encounter Summary ---
Author Organization [facility] Address [address] [place] [address] Care Team Providers Care Customer Care Coordinator Name Role Phone Olena Medrano MD Primary Care Provider [phone] Olena Medrano MD Unavailable [phone] Birgit Myrick SANITATION LEAD Unavailable [phone] Ratna Webber RN Unavailable Unavailable Conchis Ornelas RN Unavailable Unavailable Rito Medina MD Unavailable [phone] Conchis Hobbs Unavailable Unavailable Olena Medrano MD Primary Care Provider [phone] Serina Duval PAPER AND PULP MILL OPERATOR Unavailable Unavailable Chelsi Avalos LPN Unavailable Unavailjasson e Encounter Details Date Type Department Care Team (Late st Contact Info) Description 12/30/2023 Lab Requisition [facility] [address] [place] [address] Dontrell Seth MD [address] [facility] [address] [place] [address] Encounter for general adult medical examination without [...] to sleep or slept in a senior care (including now)? No 01/03/2024 Housing Stability Vital [...] drink first t nathaniel in the morning (EYE-INTERPRETER) to steady your nerves or to get rid of a hangover? 0 06/04/2023 CAGE Questionnaire Score 0 024 Utilities Answer Date Recorded In the past 12 months has e electric, gas, oil, or water [facility] threatened to shut off services in your [...] PM EST Appointment Cardiac Imaging [address] [place] [address] 05/06/2025 2:40 PM EST Office Visit [facility] [place] [address] [place] [address] Radha Esparza MD [address] [place] [address] documented as of this encounter Procedures Procedure Name Priority Date/Time Associated Diagnosis Comments MULTI DRUG RESISTANCE TEST Routine 12/30/2023 8:00 AM EDT Encounter for general adult medical examination without abnormal findings documented in this encounter Results * Multi Drug Resistance Test (12/30/2023 8:00 AM EDT) Culture No growth at day 1 12/31/2023 6:27 AM EDT [facility] Swab Both anterior nares / Unknown 12/30/2023 8:00 AM EDT 12/30/2023 8:46 AM EDT us Dontrell Seth MD LAB MICROBIOLOGY - GEN ERAL ORDERABLES Final Result [facility] [address] [place] [address] documented in this encounter Visit Diagnoses Diagnosis [...] documented as of this encounter Care Teams Customer Care Coordinator Relationship Specialty Start Date End Date [place] [address] PCP - General Family Medicine 11/29/23 02/05/24 Olena Medrano MD [address] [place] [address] PCP - General Family Medicine 02/06/24 [place] [address] Family Medicine 11/29/23 02/05/24 Birgit Myrick APRN [address] [place] [address] Nurse Practitioner Internal Medicine 11/20/21 Ratna Webber, RN [facility] Registered Nurse Cardiology 11/20/21 Conchis Ornelas, RN [facility] Registered Nurse 01/08/22 Rito Medina MD [address] [place] [address] Consulting Physician Cardiology 06/27/22 Conchis Hobbs 12/12/23 Serina Duval LPN VALUE-BASED [place] [address] TCM Nurse 02/18/24 03/19/24 Chelsi Avalos LPN VALUE-BASED TRANSFORMATION PROGRAM Licensed Practical Nurse 06/12/24 12/09/24 documented as of this encounter
--- OUTSIDE RECORDS SUMMARY | 2024-12-23 10:22 | XMS_ITS | Encounter Summary ---
Author Organization [facility] Address [address] [place] [address] Care Team Providers Care Slunk Skinner Name Role Phone Birgit Myrick LUMBER TYING MACHINE OPERATOR Unavailable [phone] Ratna Webber RN Unavailable Unavailable Conchis Ornelas RN Unavailable Unavailable Rito Medina MD Unavailable [phone] Conchis Hobbs Unavailable Unavailable Olena Medrano MD Primary Care Provider [phone] Chelsi Avalos COMPUTER SYSTEMS MANAGER Unavailable Unavailabl e Encounter Details Date Type Department Care Team (Late st Contact Info) Description 12/01/2024 Telephone [facility] [place] [address], [address] [place] [address] Radha Esparza MD [address] [place] [address] Social History Tobacco Use Types Packs/Day Years [...] any time in the past 12 m [facility], were you homeless or living in a [...] drink first t nathaniel in the morning (EYE-PLATE MILL MILL HAND) to steady your nerves or to get [...] PM EST Appointment Cardiac Imaging [address] [place] [phone] 05/06/2025 2:40 PM EST Office Visit [facility] [place] [address] [place] [phone] Radha Esparza MD [address] [place] [address] documented as of this encounter Visit Diagnoses Not on filedocumented in this encounter Additional Health Concerns Assessment Noted Time PHQ-9 Depression Total Score: 0 10/30/19 3:08 PM EDT A fall risk assessment has been complete d for the patient 10/29/2024 3:08 PM EDT A Body Mass Index follow-up plan has been documented for the patient 10/29/2024 4:25 PM EDT documented as of this encounter Care Teams Slunk Skinner Relationship Specialty Start Date End Date Olena Medrano MD [facility] [place] [address] PCP - General Family Medicine 02/06/24 Birgit Myrick APRN [address] [place] [address] Nurse Practitioner Internal Medicine 11/20/21 Ratna Webber RN [facility] Registered Nurse Cardiology 11/20/21 Conchis Ornelas RN [facility] Registered Nurse 01/08/22 Rito Medina MD [address] [place] [address] Consulting Physician Cardiology 06/27/22 Conchis Hobbs 12/12/23 Chelsi Avalos, ERMELINDA VALUE-BASED TRANSFORMATION PROGRAM Licensed Practical Nurse 06/12/24 12/09/24 documented as of this encounter
--- OUTSIDE RECORDS SUMMARY | 2024-12-23 10:22 | XMS_ITS | Encounter Summary ---
Author Organization [facility] Address [address] [place] [address] Care Team Providers Care Counseling Program Leader Name Role Phone Birgit Myrick RESOURCING CONSULTANT Unavailable [phone] Ratna Webber RN Unavailable Unavailable Conchis Ornelas RN Unavailable Unavailable Rito Medina MD Unavailable [phone] Conchis Hobbs Unavailable Unavailable Olena Medrano MD Primary Care Provider [phone] Chelsi Avalos LPN Unavailable Unavailabl e Encounter Details Date Type Department Care Team (Latest Contact Info) Description 10/29/2024 Travel Social History Tobacco Use Types Packs/Day Years [...] No 01/03/2024 Overall Financial Resource Strain (CARDIA) Jamie r Date Recorded How hard is it [...] place to sleep or slept in a fpc (including now)? No 01/03/2024 PHQ-9 Answer Date [...] any time in the past 12 m [facility], were you homeless or living in a fpc (including now)? 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 0 06/04/2023 CAGE Questionnaire Score 0 024 Utilities Answer Date Recorded In the past 12 months has e electric, gas, oil, or water company [...] as of this encounter Functional Status * Over the [...] Yvonne Don documented as of this encounter Plan of Treatment Upcoming Encounters Date Type Department Care Team (Late st Contact Info) Description 05/06/2025 1:00 PM EST Appointment Cardiac Imaging [address] [place] [phone] 05/06/2025 2:40 PM EST Office Visit [facility] [place] [address] [place] [phone] Radha Esparza MD [address] [place] [address] documented as of this encounter [...] documented as of this encounter Care Teams Counseling Program Leader Relationship Specialty Start Date End Date Olena Medrano MD [address] [place] [phone] PCP - General Family Medicine 02/06/24 Birgit Myrick APRN [address] [place] [address] Nurse Practitioner Internal Medicine 11/20/21 Ratna Webber RN [facility] Registered Nurse Cardiology 11/20/21 Conchis Ornelas RN [facility] Registered Nurse 01/08/22 Rito Medina MD [address] [place] [phone] Consulting Physician Cardiology 06/27/22 Conchis Hobbs 12/12/23 Chelsi Avalos LPN VALUE-BASED TRANSFORMATION PROGRAM Licensed Practical Nurse 06/12/24 12/09/24 documented as of this encounter
[2024-12-23 10:24] LABS: Microscopic, Urine URINE MICROSCOPIC (MICROSCOPIC)
--- NOTE | 2024-12-23 10:27 | CT_ITS ---
FINAL REPORT TECHNIQUE: Thin section axial images are obtained through the abdomen and pelvis after intravenous contrast. Reconstruction images were obtained from the axial data. Exam was performed using dose reduction techniques. This study was performed with techniques to keep radiation doses as low as reasonably achievable (ALARA). Individualized dose reduction techniques using automated exposure control or adjustment of mA and/or kV according to the patient's size were employed. CLINICAL HISTORY: ABD pain, nausea, vomiting, diarrhea COMPARISON: None FINDINGS: LUNG BASES: There is right lower lobe airspace disease, likely atelectasis although pneumonia is not excluded. The heart is enlarged, etiology unclear. LIVER: Homogeneous. No focal lesion. GALLBLADDER/BILIARY SYSTEM: Gallbladder is present. No gallstones. No biliary dilatation. SPLEEN: Unremarkable. PANCREAS: Unremarkable. ADRENALS: Unremarkable. KIDNEYS/URETERS/BLADDER: No hydronephrosis or renal stone. There is a small left renal hypodense region that likely represents a cyst. Unremarkable urinary bladder. GI TRACT: No small bowel obstruction or dilatation. There are nonspecific lower abdominal small bowel loops that are fluid-filled. The appendix is not visualized, however no secondary signs of appendicitis are seen. There is wall thickening of the ascending and transverse portions of the colon, worrisome for colitis. PELVIC ORGANS: Unremarkable for age. LYMPH NODES/RETROPERITONEUM/MESENTERY: There are mildly enlarged inguinal nodes bilaterally, otherwise no adenopathy is seen. No abdominal aortic aneurysm. ABDOMINAL WALL: The abdominal wall is intact. FREE FLUID: A small amount of free fluid is present in the pelvis. BONES: No acute osseous abnormality. IMPRESSION: 1. Wall thickening of the ascending and transverse portions of the colon, worrisome for colitis, infectious versus inflammatory. 2. There are nonspecific lower abdominal fluid-filled loops of small bowel, and enteritis is not totally excluded. 3. Right lower lobe airspace disease, likely atelectasis though pneumonia is not excluded. 4. The heart is enlarged, etiology unclear. Reviewed, Interpreted and Dictated by Mónica Lanza MD Transcribed by Lynn Francois Authenticated and [facility]
[2024-12-23 10:31] LABS: Bilirubin,Urine Negative (Negative); Color,Urine YELLOW (Yellow); Glucose,Urine (UA) Negative (Negative); Ketones,Urine Negative (Negative); Leukocyte Esterase,Urine Negative (Negative); PH,Urine 7.0 (5.0-8.5); Protein,Urine Negative (Negative); Specific Gravity, Urine 1.010 (1.005-1.030); Urobilinogen,Urine 0.2 EU/dl (0.2)
[2024-12-23 10:44] LABS: Hematocrit 51.8 % (37.0-47.0); Hemoglobin 17.4 g/dL (12.2-16.2); Immature Granulocytes % 0.3 %; Mean Corpuscular HGB Conc 33.6 g/dL (31.8-35.4); Mean Corpuscular Hemoglobin 32.8 pg (27.0-31.2); Mean Corpuscular Volume 97.6 fl (81-99); Nucleated Red Blood Cells % 0 %; Platelet Count 281 K/mm3 (142-424); Red Blood Count 5.31 M/mm3 (4.20-5.40); Red Cell Distribution Width-SD 48.0 fL; White Blood Count 7.0 K/mm3 (4.8-10.8)
[2024-12-23] MEDS: 0.9 % SODIUM CHLORIDE 1000ML 1,000 ML 999 ML IV (10:44)
[2024-12-23] MEDS: ONDANSETRON 4MG/2ML VIAL 4 MG IV (10:45)
[2024-12-23 10:49] LABS: Alanine Aminotransferase 17 U/L (12-78); Albumin Level 4.4 g/dl (3.5-5.0); Albumin/Globulin Ratio 1.8 (1.1-1.8); Alkaline Phosphatase 50 U/L (38-126); Anion Gap 11.0 mEq/L (5-15); Aspartate Amino Transferase 24 U/L (14-36); Bilirubin,Total 1.0 mg/dl (0.2-1.3); Blood Urea Nitrogen 8 mg/dl (7-17); Calcium 10.0 mg/dl (8.4-10.2); Carbon Dioxide 25 mmol/L (22.0-30.0); Chloride 105 mmol/L (98-107); Creatinine Clearance Estimated 79 mL/min (50-200); Creatinine,Serum 0.70 mg/dl (0.52-1.04); Estimated Glomerular Filt Rate 92 ml/min (>60); GFR (African American) 111 ML/MIN (>60); Globulin 2.5 g/dL (1.3-3.2); Glucose 99 mg/dl (74-100); Lipase 42 U/L (23-300); Magnesium 1.7 mg/dl (1.6-2.3); Potassium 4.0 mmoL/L (3.5-5.1); Sodium 137 mmol/L (136-145); Total Protein,Serum 6.9 g/dl (6.3-8.2)
[2024-12-23 10:50] LABS: Amphetamine/Metha Screen,Urine Negative ng/ml (<1000)
[2024-12-23 10:51] LABS: Barbiturates Screen,Urine Negative ng/ml (<200)
[2024-12-23 10:52] LABS: Benzodiazepines Screen,Urine Negative ng/ml (<200)
[2024-12-23 10:53] LABS: Methadone Screen,Urine Negative ng/ml (<300)
[2024-12-23 10:54] LABS: Opiate Screen,Urine Negative ng/ml (<300)
--- NOTE | 2024-12-23 10:54 | PC.NURSE ---
pt ambulatory to CT
[2024-12-23 10:55] LABS: Phencyclidine Screen,Urine Negative ng/ml (<25)
[2024-12-23 10:59] LABS: Bacteria,Urine Trace /lpf
[2024-12-23] MEDS: SODIUM CHLORIDE 0.9% 10ML SYR (RAD ONLY) 10 ML IV (11:00)
[2024-12-23] MEDS: IOPAMIDOL-370 (76%);100ML BOTTLE 75 ML IV (11:00)
--- NOTE | 2024-12-23 11:02 | PC.NURSE ---
pt returned from CT
[2024-12-23 11:09] VITALS: BP 109/56; PULSE 77; O2SAT 90
[2024-12-23 12:31] VITALS: BP 105/74; PULSE 84; RESP 18; TEMP 36.6; O2SAT 92
== END 2024-12-23 12:35 | disposition home or self-care (01) ==
PROVIDERS: Physician Assistant; Emergency Provider Student in an Organized Health Care Education/Training Program; PCP Family Medicine
DX: R10.13 Epigastric pain (principal); R11.2 Nausea with vomiting, unspecified
CPT/HCPCS: 74177; 80053; 80307; 80320; 81001; 83605; 83690; 83735; 85025; 96361; 96374; 99284; J2405; J7030; Q9967

== ENCOUNTER 2025-01-21 13:00 | Outpatient (CLI) | payer MEDICARE, MEDICAID, SELFPAY ==
[2025-01-21 13:05] LABS: Adenovirus F 40/41, stool Not Detected (NotDetected); Cyclospora Cayetanesis Not Detected (NotDetected); Plesimonas Shigalloides, PCR Not Detected (NotDetected); Salmonella, PCR Not Detected (NotDetected); Shiga-like toxin E coli Not Detected (NotDetected); Shigella Enterovasive E coli Not Detected (NotDetected); Vibrio, PCR Not Detected (NotDetected); Yersinia Entercolitica, PCR Not Detected (NotDetected)
[2025-01-21 16:02] LABS: Clostridium Difficile A/B, PCR Detected (NotDetected)
== END 2025-01-21 23:59 | disposition home or self-care (01) ==
LOC: LAB 13:01
PROVIDERS: PCP Family Medicine; Visit Provider Nurse Practitioner Family
DX: R19.7 Diarrhea, unspecified (principal)
CPT/HCPCS: 87506